=== PATIENT | female | born 1975 | race Caucasian/White ===

== ENCOUNTER 2024-02-06 07:08 | Inpatient (IN) ==
[2024-02-06] MEDS: Lidocaine PATCH 5% PATCH TRANSDERM ONE (10:23)
[2024-02-06 10:44] LABS: Urine Appearance Clear; Urine Bilirubin Negative (Negative); Urine Blood Negative (Negative); Urine Color Colorless; Urine Glucose Negative (Negative); Urine Ketones 1+ (Negative); Urine Nitrite Negative (Negative); Urine Protein Negative (Negative); Urine Specific Gravity 1.008 (1.002-1.030); Urine Urobilinogen Negative (Negative)
[2024-02-06] MEDS: Ondansetron 4 mg VIAL 2 MG/ML 2 ml VIAL IV ONE (10:48)
[2024-02-06 11:02] LABS: ABS Lymphocytes 1.8 10^3/uL (1.0-4.8); ABS Monocytes 0.5 10^3/uL (0.0-0.9); ABS Neutrophils 4.4 10^3/uL (1.5-7.6); Eosinophil % 0.5 %; Hematocrit 40.7 % (35-45); Lymphocyte % 26.4 %; Mean Corpuscular Hemoglobin 32.4 pg (27-33); Mean Corpuscular Hgb Conc 34.5 g/dL (31-36); Mean Corpuscular Volume 93.9 fL (80-97); Mean Platelet Volume 7.9 fL (7.5-11.2); Platelet Count 255 10^3/uL (150-450); Red Blood Count 4.33 10^6/uL (3.63-4.92); Red Cell Distribution Width 13.1 % (12-17); White Blood Count 6.8 10^3/uL (3.8-11.8)
[2024-02-06 11:32] LABS: HCG Pregnancy 0.82 mIU/mL
[2024-02-06 11:34] LABS: Albumin/Globulin Ratio 1.4 (1-3); Calcium 8.9 mg/dL (8.6-10.3); Creatinine, Serum 0.65 mg/dL (0.51-0.95); Globulin 2.8 g/dL (2-4); Potassium 4.2 mmol/L (3.5-5.0); Total Bilirubin 0.9 mg/dL (0.2-1.0); Total Protein 6.8 g/dL (6.4-8.9); eGFR CKD-EPI 109.2 (>60)
[2024-02-06] MEDS ORDERED: hydrALAZINE 20 mg/ml 1 ML Vial IV IV SLOW PU PRN (13:57)
[2024-02-06] MEDS: hydrALAZINE 20 mg/ml 1 ML Vial IV IV SLOW PU ONE (14:09)
[2024-02-06] MEDS: NS 0.9% 1000 ml BAG 1,000 ML IV SCH (15:02)
[2024-02-06 17:56] LABS: INR 1.08 (0.83-1.13)
[2024-02-06] MEDS: Heparin 5000 UNITS/ML 1 mL VIAL SUBCUT SCH (21:39)
[2024-02-07] MEDS ORDERED: Ondansetron 4 mg VIAL 2 MG/ML 2 ml VIAL IV PRN (12:12)
[2024-02-07] MEDS ORDERED: Naloxone 0.4 mg VIAL 0.4 mg/ml 1 ml VIAL IV PRN (12:12)
[2024-02-07] MEDS ORDERED: fentaNYL 100 mcg/2 ml 50 MCG/ML VIAL IV PRN (12:12)
[2024-02-07] MEDS ORDERED: Bupivacaine 0.5% SDV PF 30ML VIAL ONE (13:23)
[2024-02-07] MEDS ORDERED: ceFAZolin 2 GM PREMIX 2 GM/50 ML BAG ONE (14:21)
[2024-02-07] MEDS ORDERED: Midazolam 2 mg/2 ml VIAL 1 mg/ml 2 ml VIAL (2 mg) ONE (14:26)
[2024-02-07] MEDS ORDERED: fentaNYL 100 mcg/2 ml 50 MCG/ML VIAL ONE (14:26)
[2024-02-07] MEDS ORDERED: Propofol 10 MG/ML 20 ML BTL ONE ×3 (14:26→15:41)
[2024-02-07] MEDS ORDERED: hydrALAZINE 20 mg/ml 1 ML Vial IV IV SLOW PU PRN (15:09)
[2024-02-07] MEDS ORDERED: Glycopyrrolate IV 0.2 MG/ML 1 ML VIAL ONE (15:18)
[2024-02-07] MEDS ORDERED: Senna TAB 8.6 mg TAB PO PRN (18:18)
[2024-02-07] MEDS ORDERED: Polyethylene Glycol 3350 17 GM PACKET PO PRN (18:18)
[2024-02-07] MEDS ORDERED: Magnesium Hydroxide LIQ 30 ML UDC PO PRN (18:18)
[2024-02-07] MEDS ORDERED: Morphine 2 MG/ML SYRINGE IV PRN (18:18)
[2024-02-07] MEDS: ceFAZolin 1 GM ADVAN 1 GM in NS 0.9% 50 ML 50 ML IVPB SCH (19:35)
[2024-02-07] MEDS: Magnesium Hydroxide LIQ 30 ML UDC PO SCH (19:37)
[2024-02-07 19:58] LABS: Calcium 8.8 mg/dL (8.6-10.3); Creatinine, Serum 0.64 mg/dL (0.51-0.95); Potassium 4.1 mmol/L (3.5-5.0); eGFR CKD-EPI 109.6 (>60)
[2024-02-07] MEDS: Ondansetron 4 mg VIAL 2 MG/ML 2 ml VIAL IV PRN (21:46)
[2024-02-08 06:26] LABS: Hematocrit 35.8 % (35-45); Hemoglobin 12.4 g/dL (11.5-14.3); Mean Platelet Volume 8.4 fL (7.5-11.2); Platelet Count 233 10^3/uL (150-450)
[2024-02-08 10:23] VITALS: BP 151/75
[2024-02-08] MEDS: Enoxaparin 40 MG/0.4 ML SYR SUBCUT SCH (12:09)
== END 2024-02-08 16:30 | disposition home or self-care (01) | DRG 482 ==
LOC: ED 07:08 → EDHOLD 12:43 → SSU 13:44
PROVIDERS: ADMIT Hospitalist; ATTEND Hospitalist